=== PATIENT | male | born 1995 | race Two or more races ===

== ENCOUNTER 2016-06-25 20:58 | Emergency (ER) | payer MEDICAID ==
[~2016-06-25] VITALS: Ht 172.7 cm; Wt 54.4 kg
[2016-06-25 21:01] VITALS: BP 128/75
== END 2016-06-25 21:18 | disposition home or self-care (01) ==
LOC: ER 21:00
DX: J06.9 Acute upper respiratory infection, unspecified (principal); F17.200 Nicotine dependence, unspecified, uncomplicated; Z90.89 Acquired absence of other organs
CPT/HCPCS: A4606; Z7502; Z7610

== ENCOUNTER 2017-08-28 12:21 | Emergency (ER) | payer MEDICAID ==
[~2017-08-28] VITALS: Ht 172.7 cm; Wt 59.0 kg
[2017-08-28] MEDS ORDERED: NALOXONE PREFILLED SYRINGE 2 MG/2 ML SYRINGE ONE (12:28)
[2017-08-28 13:22] VITALS: BP 113/73
== END 2017-08-28 13:34 | disposition home or self-care (01) ==
LOC: ER 12:28
DX: B02.9 Zoster without complications (principal); F17.200 Nicotine dependence, unspecified, uncomplicated; Z90.89 Acquired absence of other organs
CPT/HCPCS: 99283; A4606; J2310; Z7610

== ENCOUNTER 2021-02-02 17:47 | Emergency (ER) | payer MEDICAID ==
[~2021-02-02] VITALS: Ht 172.7 cm; Wt 70.3 kg
[2021-02-02 17:58] VITALS: BP 134/85
--- NOTE | 2021-02-02 18:08 | NUR ---
PT CAME TO ER C/O FACIAL ABSCESS LATERAL TO R EYE X 2 DAYS. DENIES FEVER/CHILLS. ADMITS REDNESS, R EYE SWELLING, HOT TO TOUCH. PT ASSISTED TO BED.
--- NOTE | 2021-02-02 18:09 | NUR ---
PA AT BEDSIDE
[2021-02-02] MEDS ORDERED: CEPH500T PO (18:18)
[2021-02-02] MEDS ORDERED: SULF1TAB48 PO (18:18)
== END 2021-02-02 18:33 | disposition home or self-care (01) ==
LOC: ER 17:51
DX: L02.01 Cutaneous abscess of face (principal); F17.200 Nicotine dependence, unspecified, uncomplicated; Z90.89 Acquired absence of other organs